=== PATIENT | male | born 1975 | race Caucasian/White ===

== ENCOUNTER 2022-12-10 12:54 | Emergency (ER) | payer OTHER, SELFPAY ==
[2022-12-10 13:04] VITALS: BP 108/73; PULSE 86; RESP 16; TEMP 36.6; O2SAT 98; BMI 22.1
--- NOTE | 2022-12-10 13:20 | ED.GENADULT ---
HPI - General Adult General Chief complaint: Extremity Pain/Injury, Upper Stated complaint: Needs ring removed L hand Time Seen by Provider: 12/10/22 12:57 History of Present Illness HPI narrative: This 47-year-old male has a ring on his left ring finger that needs to be removed. He has swelling distally from the ring and cannot remove it from his finger. 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 He presented to urgent care and they were unable to remove it. This ring is a tungsten ring that needs a special tool for removal. Related Data Home Medications Medication Instructions Recorded Confirmed bupropion HCl 150 mg 24 hr tablet, 150 mg PO DAILY 12/10/22 12/10/22 extended release venlafaxine 150 mg 150 mg PO DAILY 12/10/22 12/10/22 capsule,extended release 24 hr Allergies Allergy/AdvReac Type Severity Reaction Status Date / Time No Known Drug Allergies Allergy Verified 12/10/22 13:04 Review of Systems Status of ROS: Reports: 10 or more systems reviewed and unremarkable except as noted in History and below Narrative: Constitutional: No fevers, no weight gain or loss. Eyes: No discharge. No vision changes. HENT: No congestion, no sore throat, no ear pain. Cardiovascular: No chest pain, no palpitations. Respiratory: No shortness of breath, no wheezes, no cough. Gastrointestinal: No abdominal pain, no vomiting, no diarrhea. Genitourinary: No dysuria, no hematuria. Musculoskeletal: Left ring finger swelling and pain. Skin: No rashes, no pruritis. Neurological: No dizziness, weakness, sensory change, speech change. Endo/Heme/Allergies: No bruising or bleeding. No polydipsia. Pysch: no suicidality, no anxiety, no insomnia. All other systems reviewed and are negative. Exam Narrative: Exam Narrative: Constitutional: Well-developed, well-nourished, no acute distress. HEENT: Normocephalic, atraumatic. Neck: Normal range of motion. Nontender. Supple. Heart: Intact distal pulses. Lungs: No chest discomfort. No wheezes, rhonchi, or rales. Abdomen: Nontender. Back: Normal range of motion. Extremities: Left ring finger has significant swelling distal to the ring. Skin: Intact. No rash. Warm. No erythema or pallor. Neurologic: No altered sensation. No weakness. Alert and oriented. Psychiatric: No suicidality. No anxiety or depression. No insomnia. Nursing notes and vitals signs are reviewed. Const: Vital Signs, click to edit/add: Vital Signs - 24 hr 12/10/22 13:04 Temperature 97.9 F Pulse Rate [Right Pulse Oximeter] 86 Respiratory Rate 16 Blood Pressure [Ri ght Upper Arm] 108/73 Pulse Oximetry 98 Course Vital Signs Vital signs: Initial Vital Signs Temperature 97.9 F 12/10/22 13:04 Temperature Source Temporal Artery Scan 12/10/22 13:04 Pulse Rate 86 12/10/22 13:04 Respiratory Rate 16 12/10/22 13:04 Blood Pressure 108/73 12/10/22 13:04 Blood Pressure Mean 84 12/10/22 13:04 Blood Pressure Position Sitting 12/10/22 13:04 Pulse Oximetry 98 12/10/22 13:04 Vital Signs Temperature 97.9 F 12/10/22 13:04 Pulse Rate 86 12/10/22 13:04 Respiratory Rate 16 12/10/22 13:04 Blood Pressure 108/73 12/10/22 13:04 Pulse Oximetry 98 12/10/22 13:04 Temperature 97.9 F 12/10/22 13:04 Pulse Rate 86 12/10/22 13:04 Respiratory Rate 16 12/10/22 13:04 Blood Pressure 108/73 12/10/22 13:04 Pulse Oximetry 98 12/10/22 13:04 Medical Decision Making [facility] Narrative Medical decision making narrative: This patient has a tungsten wedding ring on his left ring finger. I use the special tool to remove the ring successfully. There is no sign of foreign object or indication for imaging studies. I stated to the patient that the swelling should settle down now that the circumferential pressure from the ring has been relieved. Discharge Plan Discharge Clinical Impression: Tight ring on finger Patient Disposition: Home, Self-Care Condition: Improved Additional Instructions: Increase activity as tolerated. Follow up with MD as needed. Return if worsening. Prescriptions: No Action venlafaxine 150 mg capsule,extended release 24hr 150 mg PO DAILY bupropion HCl 150 mg tablet extended release 24 hr 150 mg PO DAILY Follow Up/Referrals: Provider,Not a Local [Primary Care Provider] - Stand Alone Forms: [employer] [facility] Info Instructions
== END 2022-12-10 13:44 | disposition home or self-care (01) ==
LOC: ED 13:36
PROVIDERS: Emergency Provider Emergency Medicine Emergency Medical Services
DX: S60.445A External constriction of left ring finger, initial encounter (principal); W49.04XA Ring or other jewelry causing external constriction, initial encounter
CPT/HCPCS: 99282; 99283; 99284